=== PATIENT | male | born 1965 | race Caucasian/White ===

== ENCOUNTER 2022-04-13 14:27 | Inpatient (IN) | payer OTHER ==
[2022-04-13] MEDS ORDERED: NICOTINE 10 MG CARTRIDGE (INHALER) IH PRN (15:03)
[2022-04-13] MEDS ORDERED: BISMUTH SUBSALICYLATE 524 MG/30 ML PO PRN (15:03)
[2022-04-13] MEDS ORDERED: MAGNESIUM CITRATE 300 ML BOTTLE PO PRN (15:03)
[2022-04-13] MEDS ORDERED: ONDANSETRON *ODT* 4 MG TABLET SL PRN (15:03)
[2022-04-13] MEDS ORDERED: MAG HYDROX/AL HYDROX/SIMETH 30 ML UNIT-DOSE CUP PO PRN (15:03)
[2022-04-13] MEDS ORDERED: DICYCLOMINE HCL 10 MG CAPSULE PO PRN (15:03)
[2022-04-13] MEDS ORDERED: LOPERAMIDE HCL 2 MG CAPSULE PO PRN (15:03)
[2022-04-13] MEDS ORDERED: BENZOCAINE/MENTHOL (CHLORASEPTIC ) LOZENGE MM PRN (15:03)
[2022-04-13] MEDS ORDERED: NALOXONE HCL (KLOXXADO) 8 MG SPRAY NS PRN (15:03)
[2022-04-13] MEDS ORDERED: cloNIDine HCL 0.1 MG TABLET PO PRN (15:03)
[2022-04-13] MEDS ORDERED: IBUPROFEN 400 MG TABLET (FP) PO PRN (15:03)
[2022-04-13] MEDS ORDERED: ACETAMINOPHEN 325 MG TABLET (FP) PO PRN ×2 (15:03)
[2022-04-13] MEDS ORDERED: methaDONE HCL 10 MG TABLET (FOR DETOX USE ONLY) PO ONE (15:03)
[2022-04-13] MEDS ORDERED: MAGNESIUM HYDROX 2400MG/30ML ORAL SUSPENSION 30 ML CUP PO PRN (15:03)
[2022-04-13 15:53] VITALS: BMI 25.2
[2022-04-13] MEDS ORDERED: methaDONE HCL 10 MG TABLET (FOR DETOX USE ONLY) ONE (18:43)
[2022-04-13] MEDS: PRENATAL VITAMINS W/ FOLIC ACID TABLET (FP) PO SCH (18:45)
[2022-04-13] MEDS: hydrOXYzine PAMOATE 25 MG CAPSULE (FP) PO SCH (18:45)
[2022-04-13] MEDS ORDERED: ATORVASTATIN CA 40 MG TABLET (FP) PO SCH (22:00)
[2022-04-13] MEDS: THIAMINE HCL 100 MG TABLET (FP) PO SCH (23:06)
[2022-04-13] MEDS: MELATONIN 5 MG TABLETS PO SCH (23:06)
[2022-04-14] MEDS: hydrOXYzine PAMOATE 25 MG CAPSULE (FP) PO SCH ×6 (00:29→22:18)
[2022-04-14] MEDS ORDERED: hydrOXYzine PAMOATE 25 MG CAPSULE (FP) PO ONE (06:10)
[2022-04-14] MEDS ORDERED: IBUPROFEN 400 MG TABLET (FP) PO ONE (06:11)
[2022-04-14] MEDS ORDERED: methaDONE HCL 10 MG TABLET (FOR DETOX USE ONLY) ONE (09:44)
[2022-04-14] MEDS ORDERED: DARUNAVIR/COB/EMTRI/TENOF (SYMTUZA) TABLET (NF) PO SCH (10:00)
[2022-04-14] MEDS: PRENATAL VITAMINS W/ FOLIC ACID TABLET (FP) PO SCH (10:07)
[2022-04-14 12:11] LABS: HEMOGLOBIN 12.9 GM/dL (11.7-16.9); MCH 31.1 pg (25.7-33.7); MCHC 33.1 g/dl (32.0-35.9); MEAN CELL VOLUME 93.9 fl (80-96); MEAN PLT VOLUME 9.8 fl (7.5-11.1); PLATELET COUNT 79 10^3/uL (134-434); RBC 4.16 M/mm3 (4.00-5.60); RDW 14.8 % (11.9-15.9); WHITE BLOOD COUNT 4.2 K/mm3 (4.0-10.0)
[2022-04-14 12:17] LABS: CALCIUM 8.5 mg/dL (8.5-10.1)
[2022-04-14 12:18] LABS: ALBUMIN 3.3 g/dl (3.4-5.0); BLOOD UREA NITROGEN 17.4 mg/dL (7-18)
[2022-04-14 12:22] LABS: BILIRUBIN,TOTAL 0.5 mg/dL (0.2-1); TOT PROT 7.9 g/dl (6.4-8.2)
[2022-04-14] MEDS: THIAMINE HCL 100 MG TABLET (FP) PO SCH (22:18)
[2022-04-14] MEDS: ATORVASTATIN CA 20 MG TABLET (FP) PO SCH (22:18)
[2022-04-14] MEDS: MELATONIN 5 MG TABLETS PO SCH ×2 (22:19→22:20)
[2022-04-15] MEDS: hydrOXYzine PAMOATE 25 MG CAPSULE (FP) PO SCH ×5 (06:23→21:42)
[2022-04-15] MEDS: DARUNAVIR/COB/EMTRI/TENOF (SYMTUZA) TABLET (NF) PO SCH (07:40)
[2022-04-15] MEDS ORDERED: methaDONE HCL 10 MG TABLET (FOR DETOX USE ONLY) PO ONE (10:00)
[2022-04-15] MEDS: PRENATAL VITAMINS W/ FOLIC ACID TABLET (FP) PO SCH (10:54)
[2022-04-15] MEDS: THIAMINE HCL 100 MG TABLET (FP) PO SCH (21:43)
[2022-04-15] MEDS: MELATONIN 5 MG TABLETS PO SCH (21:43)
[2022-04-15] MEDS: ATORVASTATIN CA 20 MG TABLET (FP) PO SCH (21:43)
[2022-04-16] MEDS: hydrOXYzine PAMOATE 25 MG CAPSULE (FP) PO SCH ×5 (06:02→22:10)
[2022-04-16] MEDS: DARUNAVIR/COB/EMTRI/TENOF (SYMTUZA) TABLET (NF) PO SCH (08:04)
[2022-04-16] MEDS ORDERED: methaDONE HCL 10 MG TABLET (FOR DETOX USE ONLY) ONE (09:16)
[2022-04-16] MEDS: PRENATAL VITAMINS W/ FOLIC ACID TABLET (FP) PO SCH (10:30)
[2022-04-16] MEDS: METHOCARBAMOL 500 MG TABLET PO PRN (17:26)
[2022-04-16] MEDS: THIAMINE HCL 100 MG TABLET (FP) PO SCH (22:10)
[2022-04-16] MEDS: MELATONIN 5 MG TABLETS PO SCH (22:10)
[2022-04-16] MEDS: ATORVASTATIN CA 20 MG TABLET (FP) PO SCH (22:10)
[2022-04-17] MEDS: hydrOXYzine PAMOATE 25 MG CAPSULE (FP) PO SCH ×5 (05:45→22:15)
[2022-04-17] MEDS: DARUNAVIR/COB/EMTRI/TENOF (SYMTUZA) TABLET (NF) PO SCH (07:09)
[2022-04-17] MEDS ORDERED: methaDONE HCL 10 MG TABLET (FOR DETOX USE ONLY) PO ONE (10:00)
[2022-04-17] MEDS: PRENATAL VITAMINS W/ FOLIC ACID TABLET (FP) PO SCH (10:10)
[2022-04-17 16:08] LABS: SARS-CoV-2 NAA Not Detected (Not Detected)
[2022-04-17] MEDS: ATORVASTATIN CA 20 MG TABLET (FP) PO SCH (22:15)
[2022-04-17] MEDS: MELATONIN 5 MG TABLETS PO SCH (22:15)
[2022-04-17] MEDS: THIAMINE HCL 100 MG TABLET (FP) PO SCH (22:15)
[2022-04-18] MEDS: METHOCARBAMOL 500 MG TABLET PO PRN (05:40)
[2022-04-18] MEDS: hydrOXYzine PAMOATE 25 MG CAPSULE (FP) PO SCH ×2 (05:40→10:22)
[2022-04-18] MEDS: DARUNAVIR/COB/EMTRI/TENOF (SYMTUZA) TABLET (NF) PO SCH (07:55)
[2022-04-18 08:40] VITALS: BP 134/82; PULSE 59; TEMP 96.9
[2022-04-18] MEDS: PRENATAL VITAMINS W/ FOLIC ACID TABLET (FP) PO SCH (10:22)
== END 2022-04-18 11:31 | disposition home or self-care (01) | DRG 773 ==
LOC: YASAS 14:27 → Y3N 04-14 08:40
PROVIDERS: ADMIT Allergy & Immunology; ATTEND Surgery
PROC: HZ2ZZZZ Detoxification Services for Substance Abuse Treatment (ICD-10-PCS; principal; 2022-04-14)
DX: F11.23 Opioid dependence with withdrawal (principal); F17.210 Nicotine dependence, cigarettes, uncomplicated; Z21 Asymptomatic human immunodeficiency virus [HIV] infection status; I25.10 Atherosclerotic heart disease of native coronary artery without angina pectoris; I10 Essential (primary) hypertension; E78.5 Hyperlipidemia, unspecified; R94.31 Abnormal electrocardiogram [ECG] [EKG]; Z86.74 Personal history of sudden cardiac arrest; Z86.11 Personal history of tuberculosis; Z59.01 Sheltered homelessness; Z87.828 Personal history of other (healed) physical injury and trauma
CPT/HCPCS: 36415; 71046-TC-FY; 80053; 80061; 85027; 86780; 93005; 93010; C9803-CS; J0735; U0003; U0005

== ENCOUNTER 2023-03-03 09:52 | Inpatient (IN) | payer OTHER ==
[2023-03-03 10:17] VITALS: BMI 25.8
[2023-03-03] MEDS ORDERED: guaiFENesin 600 MG TABLET.ER (FP) PO PRN (11:06)
[2023-03-03] MEDS ORDERED: MAGNESIUM HYDROX 2400MG/30ML ORAL SUSPENSION 30 ML CUP PO PRN (11:06)
[2023-03-03] MEDS ORDERED: BENZONATATE 200 MG CAPSULE PO PRN (11:06)
[2023-03-03] MEDS ORDERED: POLYETHYLENE GLYCOL (HEALTHYLAX) 3350 17 GM PACKET PO PRN (11:06)
[2023-03-03] MEDS ORDERED: NALOXONE HCL 0.4 MG/ML VIAL IM PRN (11:06)
[2023-03-03] MEDS ORDERED: hydrOXYzine PAMOATE 25 MG CAPSULE (FP) PO PRN (11:06)
[2023-03-03] MEDS ORDERED: NICOTINE 10 MG CARTRIDGE (INHALER) IH PRN (11:06)
[2023-03-03] MEDS ORDERED: NICOTINE POLACRILEX 4 MG GUM BUC PRN (11:06)
[2023-03-03] MEDS ORDERED: BENZOCAINE/MENTHOL (CHLORASEPTIC ) LOZENGE MM PRN (11:06)
[2023-03-03] MEDS ORDERED: ONDANSETRON *ODT* 4 MG TABLET SL PRN (11:06)
[2023-03-03] MEDS ORDERED: DICYCLOMINE HCL 10 MG CAPSULE PO PRN (11:06)
[2023-03-03] MEDS ORDERED: NALOXONE HCL (KLOXXADO) 8 MG SPRAY NS PRN (11:06)
[2023-03-03] MEDS ORDERED: MAG HYDROX/AL HYDROX/SIMETH 30 ML UNIT-DOSE CUP PO PRN (11:06)
[2023-03-03] MEDS ORDERED: ACETAMINOPHEN 325 MG TABLET (FP) PO PRN (11:06)
[2023-03-03] MEDS ORDERED: BISMUTH SUBSALICYLATE 524 MG/30 ML PO PRN (11:06)
[2023-03-03] MEDS ORDERED: LOPERAMIDE HCL 2 MG CAPSULE PO PRN (11:06)
[2023-03-03] MEDS ORDERED: cloNIDine HCL 0.1 MG TABLET PO PRN (11:28)
[2023-03-03] MEDS ORDERED: methaDONE HCL 10 MG TABLET (FOR DETOX USE ONLY) PO ONE (11:28)
[2023-03-03] MEDS: DARUNAVIR/COB/EMTRI/TENOF (SYMTUZA) TABLET (NF) PO SCH (14:27)
[2023-03-03] MEDS ORDERED: methaDONE HCL 10 MG TABLET PO ONE (15:00)
[2023-03-03] MEDS: clonazePAM 0.5 MG ODT TABLETS SL PRN (22:17)
[2023-03-03] MEDS: CARVEDILOL 3.125 MG TABLET (FP) PO SCH (22:17)
[2023-03-03] MEDS: THIAMINE HCL 100 MG TABLET (FP) PO SCH (22:17)
[2023-03-03] MEDS: MELATONIN 5 MG TABLETS PO SCH (22:19)
[2023-03-04] MEDS: PRENATAL VITAMINS W/ FOLIC ACID TABLET (FP) PO SCH (09:39)
[2023-03-04] MEDS: DARUNAVIR/COB/EMTRI/TENOF (SYMTUZA) TABLET (NF) PO SCH (09:41)
[2023-03-04] MEDS: LISINOPRIL 10 MG TABLET PO SCH (09:41)
[2023-03-04] MEDS: METHOCARBAMOL 500 MG TABLET PO PRN (09:41)
[2023-03-04] MEDS: clonazePAM 0.5 MG ODT TABLETS SL PRN (09:42)
[2023-03-04] MEDS: CARVEDILOL 3.125 MG TABLET (FP) PO SCH ×2 (10:27→22:50)
[2023-03-04] MEDS ORDERED: LORazepam 2 MG TABLET PO ONE (13:16)
[2023-03-04] MEDS: LORazepam 2 MG TABLET PO SCH ×2 (17:14→22:50)
[2023-03-04] MEDS: THIAMINE HCL 100 MG TABLET (FP) PO SCH (22:50)
[2023-03-04] MEDS: ATORVASTATIN CA 20 MG TABLET (FP) PO SCH (22:50)
[2023-03-04] MEDS: MELATONIN 5 MG TABLETS PO SCH (22:53)
[2023-03-05] MEDS: LORazepam 2 MG TABLET PO SCH ×4 (05:30→22:36)
[2023-03-05] MEDS ORDERED: methaDONE HCL 10 MG TABLET (FOR DETOX USE ONLY) PO ONE (10:00)
[2023-03-05] MEDS: ASPIRIN 81 MG CHEWABLE TABLETS PO SCH (10:22)
[2023-03-05] MEDS: LISINOPRIL 10 MG TABLET PO SCH (10:23)
[2023-03-05] MEDS: PRENATAL VITAMINS W/ FOLIC ACID TABLET (FP) PO SCH (10:23)
[2023-03-05] MEDS: CARVEDILOL 3.125 MG TABLET (FP) PO SCH ×2 (10:23→22:33)
[2023-03-05] MEDS: DARUNAVIR/COB/EMTRI/TENOF (SYMTUZA) TABLET (NF) PO SCH (10:24)
[2023-03-05] MEDS: MELATONIN 5 MG TABLETS PO SCH (22:33)
[2023-03-05] MEDS: ATORVASTATIN CA 20 MG TABLET (FP) PO SCH (22:33)
[2023-03-05] MEDS: THIAMINE HCL 100 MG TABLET (FP) PO SCH (22:33)
[2023-03-06] MEDS: LORazepam 1 MG TABLET PO SCH ×2 (05:25→10:06)
[2023-03-06 09:17] VITALS: BP 153/91; PULSE 53; RESP 18; TEMP 97.5
[2023-03-06] MEDS: ASPIRIN 81 MG CHEWABLE TABLETS PO SCH (10:05)
[2023-03-06] MEDS: PRENATAL VITAMINS W/ FOLIC ACID TABLET (FP) PO SCH (10:05)
[2023-03-06] MEDS: METHOCARBAMOL 500 MG TABLET PO PRN (10:05)
[2023-03-06] MEDS: CARVEDILOL 3.125 MG TABLET (FP) PO SCH (10:05)
[2023-03-06] MEDS: LISINOPRIL 10 MG TABLET PO SCH (10:05)
[2023-03-06] MEDS: DARUNAVIR/COB/EMTRI/TENOF (SYMTUZA) TABLET (NF) PO SCH (10:06)
[2023-03-07] MEDS ORDERED: LORazepam 0.5 MG TABLET PO SCH (05:00)
[2023-03-07] MEDS ORDERED: methaDONE HCL 10 MG TABLET (FOR DETOX USE ONLY) PO ONE (10:00)
[2023-03-08] MEDS ORDERED: LORazepam 0.5 MG TABLET PO ONE (05:00)
== END 2023-03-06 12:00 | disposition left against medical advice (07) | DRG 770 ==
LOC: YASAS 09:52 → UNDOADMIN 12:21 → Y6N 12:21
PROVIDERS: ADMIT Allergy & Immunology; ATTEND Surgery
PROC: HZ2ZZZZ Detoxification Services for Substance Abuse Treatment (ICD-10-PCS; principal; 2023-03-03)
DX: F11.23 Opioid dependence with withdrawal (principal); F13.20 Sedative, hypnotic or anxiolytic dependence, uncomplicated; F17.210 Nicotine dependence, cigarettes, uncomplicated; Z21 Asymptomatic human immunodeficiency virus [HIV] infection status; I10 Essential (primary) hypertension; E78.5 Hyperlipidemia, unspecified; R00.1 Bradycardia, unspecified; R76.11 Nonspecific reaction to tuberculin skin test without active tuberculosis; Z86.19 Personal history of other infectious and parasitic diseases; Z79.899 Other long term (current) drug therapy
CPT/HCPCS: 87811; 93005; 93010; C9803-CS; Q0162; U0003; U0005